=== PATIENT | male | born 1930 | race Caucasian/White ===

== ENCOUNTER 2017-03-21 16:40 | Inpatient (IN) | payer MEDICARE, OTHER ==
[~2017-03-21] VITALS: Ht 185 cm; Wt 96.2 kg
--- NOTE | ~2017-03-21 | PR ---
[place], [place] PROGRESS NOTE NAME: HANS CARIDAD ALDANA UNIT #: [id number] ROOM: 509 DOCTOR: JUSTIN LAI MD BIRTHDATE: [birth year] DOS: SUBJECTIVE: The patient is quite weak. He is awake, alert, oriented. OBJECTIVE: GENERAL APPEARANCE: The patient is alert and oriented x 3, in no visible distress. VITAL SIGNS: Blood pressure 122/48, heart rate of 90 beats per minute, breathing 18 times per minute, afebrile. HEENT AND NECK: Exam within normal limits. CARDIOVASCULAR SYSTEM: Heart rate is regular in rate and rhythm. S1 and S2 normally audible. LUNGS: Clear to auscultation. ABDOMEN: Soft, nontender. No obvious organomegaly. Bowel sounds are present. EXTREMITIES: Without significant cyanosis or edema. IMPRESSION: 1. The patient with cellulitis involving the right lower extremity without significant improvement with appropriate antibiotics from Infectious Disease. Disease specialist is following the patient. The patient is being treated with cefazolin and clindamycin. 2. Poorly healing wound of the right great. 3. Adult failure to thrive. The patient is working with physical therapy. We are also taking bedsore precautions. 4. Urinary tract infection with contaminated cultures. 5. Chronic atrial fibrillation with pacemaker placement. The patient anticoagulated with apixaban. 6. Benign essential hypertension with controlled blood pressures. JUSTIN LAI MD CM:PNTRANS [id number] JUSTIN LAI MD 03/27/17 0528 interface
--- NOTE | ~2017-03-21 | PR ---
[place], [place] PROGRESS NOTE NAME: HANS CARIDAD ALDANA UNIT #: [id number] ROOM: 509 DOCTOR: KENNEDY MANZANO,GREGORY Ontiveros BIRTHDATE: [birth year] DOS: ADDENDUM TO THE INFECTIOUS DISEASE NOTE ON 03/25/2017 ON THE PATIENT. I agree with the above plans as described. Follow the patient clinically and adjust accordingly. GREGORY BENAVIDES MD CM:PNTRANS [id number] GREGORY BENAVIDES MD 03/27/17 1824 interface
--- NOTE | ~2017-03-21 | PR ---
[place], [place] PROGRESS NOTE NAME: HANS CARIDAD ALDANA UNIT #: [id number] ROOM: 509 DOCTOR: JUSTIN LAI MD BIRTHDATE: [birth year] DOS: 03/28/2017 SUBJECTIVE: The patient is awake, alert, oriented and improving. OBJECTIVE: VITAL SIGNS: Blood pressure 113/49, heart rate of 86 beats per minute, breathing 18 times per minute, afebrile, pulse ox 95%. GENERAL APPEARANCE: The patient is alert and oriented x 3, in no visible distress. Generalized weakness. HEENT AND NECK: Exam within normal limits. CARDIOVASCULAR SYSTEM: Heart rate is regular in rate and rhythm. S1 and S2 normally audible. LUNGS: Clear to auscultation. ABDOMEN: Soft, nontender. No obvious organomegaly. Bowel sounds are present. EXTREMITIES: ____. Chronic skin changes in the lower extremities and cellulitis in the right lower extremity with slight improvement with treatment. It is also swollen and red, but improving and dried nonhealing chronic wound on the right toe. IMPRESSION: 1. The patient with advanced failure to thrive, going to retirement facility and wound care and antibiotics too at retirement facility. The patient was living by himself until he was admitted for being found on the floor at home. 2. Cellulitis of the right lower extremity with swelling and pain, improving slowly with treatment with antibiotics. 3. Adult failure to thrive. 4. Chronic atrial fibrillation, with pacemaker placement. 5. Benign essential hypertension. 6. Benign prostatic hypertrophy and urinary retention, controlled with Flomax. 7. Chronic atrial fibrillation with controlled heart rates. JUSTIN LAI MD CM:PNTRANS [id number] JUSTIN LAI MD 03/28/17 1426 interface
--- NOTE | ~2017-03-21 | PR ---
[place], [place] PROGRESS NOTE NAME: HANS CARIDAD ALDANA UNIT #: [id number] ROOM: 509 DOCTOR: JUSTIN LAI MD BIRTHDATE: [birth year] DOS: 03/23/2017 SUBJECTIVE: The patient complaining of lower extremity pains. OBJECTIVE: VITAL SIGNS: Blood pressure 105/76, heart rate 85 beats per minute, breathing 20 times per minute, temperature 99.4 degrees Fahrenheit. GENERAL APPEARANCE: The patient is alert and oriented x 3, in no visible distress. VITAL SIGNS: Blood pressure 105/76, heart rate 85 beats per minute, breathing 20 times per minute, temperature 99.4 degrees Fahrenheit. HEENT AND NECK: Exam within normal limits. CARDIOVASCULAR SYSTEM: Heart rate is regular in rate and rhythm. S1 and S2 normally audible. LUNGS: Clear to auscultation. ABDOMEN: Soft, nontender. No obvious organomegaly. Bowel sounds are present. EXTREMITIES: Generalized weakness, some right lower extremity weakness and redness and swelling. IMPRESSION: 1. The patient has right toe skin lesion and redness spreading from his calf up into his thigh, which is cellulitis and he already has chronic skin changes in the legs bilaterally. The patient showed no signs of deep vein thrombosis on the Dopplers done during this admission. 2. No signs of rhabdomyolysis with BUN and creatinine of 27 and 1.8. The patient is being diuresed. The patient being hydrated gently. 3. Poor appetite and adult failure to thrive. The patient on appetite stimulant and being encouraged to eat. 4. Benign essential hypertension with controlled blood pressures. 5. Urinary retention, being treated and controlled with Flomax. 6. Chronic atrial fibrillation with pacemaker placement. The patient anticoagulated with apixaban. 7. The patient working with physical therapy. JUSTIN LAI MD CM:PNTRANS [id number] JUSTIN LAI MD 03/24/17 0028 interface
--- NOTE | ~2017-03-21 | PR ---
[place], [place] PROGRESS NOTE NAME: CARIDAD MAXWELL SR UNIT #: [id number] ROOM: 509 DOCTOR: WILFREDO LYNNEJANUARY BIRTHDATE: [birth year] DOS: 03/25/2017 SUBJECTIVE: The patient is being followed for right leg cellulitis. He states he has some improvement of the right leg pain. He is on Ancef and clindamycin. He is not having any issues with the antibiotics. Denies fevers, chills, nausea, vomiting or diarrhea. No rash or itch. No cough or shortness of breath. LABORATORY DATA: Showed WBC is 9.4, platelets 184. Blood cultures remain sterile. OBJECTIVE: VITAL SIGNS: Temperature 97.4, pulse 81, respirations 18, BP 118/55. GENERAL: An 86-year-old male, in no acute distress. HEAD, EYES, EARS, NOSE AND THROAT: Normocephalic. No thrush. LUNGS: Clear to auscultation bilaterally. Respirations even and unlabored. HEART: Regular rhythm. No murmur appreciated. ABDOMEN: Soft, nontender. EXTREMITIES: Left lower extremity, +1 to 2 edema. Right lower extremity, +3 to 4 edema with significant erythema of the lower leg with involvement up to thigh, especially laterally that is improving. The erythema is somewhat less than from yesterday and tenderness seems to be somewhat less. ASSESSMENT: Right leg cellulitis. PLAN: Continue Ancef and clindamycin at least through the weekend. Case discussed with Dr. Gregory Benavides. BRIAN VILLALOBOS CNP [place], [place] PROGRESS NOTE NAME: CARIDAD MAXWELL SR UNIT #: [id number] ROOM: 509 DOCTOR: WILFREDO LYNNEJANUARY BIRTHDATE: [birth year] GREGORY BENAVIDES MD CM:PNTRANS [id number] JANUARY WILFREDO LYNNE 03/26/17 1631 interface
--- NOTE | ~2017-03-21 | CON ---
[place], [place] REPORT OF CONSULTATION NAME: CARIDAD MAXWELL SR UNIT #: [id number] ROOM: 509 DOCTOR: WILFREDO LYNNE,JANUARY BIRTHDATE: [birth year] DOS: 03/24/2017 HISTORY OF PRESENT ILLNESS: The patient is an 86-year-old male who was admitted from home late on the 6th after he fell. He was down they think for a couple of hours prior to coming in. He did have elevated CK. At the time of admission, his creatinine was also 1.3 and that has improved to 1.06. He has swelling, redness and pain of the right lower extremity. He was started on Zosyn early yesterday morning. ID was consulted for right leg cellulitis. His WBCs were 22.2 on admission and are down to 8.8 today. He has received IV fluids. His blood cultures are negative. Urine culture was contaminated. The patient states he has had swelling and pain of the right leg for approximately a week. He also states though that he was on antibiotics, which his daughter states that he was and he is somewhat of a poor historian. He has pain with right leg and is unable to stand on it. I have discussed the case extensively with Dr. Ponce and reviewed the chart. He had an ultrasound that was negative for DVT, as well as multiple scans and x-rays, which I reviewed, which were negative for DVT. PAST MEDICAL HISTORY: As above as well as cholecystitis, BPH, COPD, AFib, CVA, hyperlipidemia, anemia. ALLERGIES: INCLUDE BACTRIM. FAMILY MEDICAL HISTORY: Not pertinent given chief complaint or advanced age. Father with COPD. Mother with DE. SOCIAL HISTORY: He lives alone, nonsmoker, nondrinker. No illicit drug use. CURRENT MEDICATIONS: Include Aquaphor, MiraLax, Zosyn, Megace, Tylenol, Kenalog, nystatin, Proscar, Tenormin, aspirin, Flomax, Lipitor, Eliquis, DuoNeb. REVIEW OF SYSTEMS: As above in history of present illness. He has had a few low grade temps up to 99.9. No nausea or vomiting. No diarrhea. No rash or itch. No cough or shortness of breath. No headache or dizziness. He does have some generalized weakness, significant right leg swelling, pain and redness. LABORATORY DATA: WBC is 8.8, platelets 157. BUN 25, creatinine 1.06, sodium 143. PHYSICAL EXAMINATION: VITAL SIGNS: Temperature 98.2, pulse 67, respirations 20, BP 101/55: GENERAL: An 86-year-old male, in no acute distress. HEAD, EYES, EARS, NOSE AND THROAT: Normocephalic. No thrush. LUNGS: Clear to auscultation bilaterally. Respirations even and unlabored. HEART: Regular rhythm with murmur noted. ABDOMEN: Soft, nontender, positive bowel sounds. [place], [place] REPORT OF CONSULTATION NAME: CARIDAD MAXWELL SR UNIT #: [id number] ROOM: 509 DOCTOR: WILFREDO LYNNE,JANUARY BIRTHDATE: [birth year] EXTREMITIES: Mild left lower extremity, right lower extremity +3 to 4 edema with erythema that extends up to his hips, appears to be fading slightly. He does have a small superficial area where it appears that the skin has cracked at the base of the right great toe as well as a little erythema of the right second toe. There are no open wounds. Skin over the leg is dry and flaking, tender all the way up to the thigh. Skin is otherwise warm, dry, free of rashes. He does have hyperpigmentation of lower extremities, consistent with chronic edema. ASSESSMENT: Right leg cellulitis, which has partially responded to Zosyn. PLAN: At this point, we can narrow antibiotics to Ancef and clindamycin. I did discuss the case again with Dr. Ponce extensively as well as patient's daughter. After a couple of days of IV antibiotics, we should be able to switch over to oral Keflex as long as he responds well. Case discussed with Dr. Gregory Benavides. JANUARY GUERA VILLALOBOS GREGORY BENAVIDES MD CM:CONSTR:REPORT OF CONSULTATION 1827 03/24/17 0239 interface
--- NOTE | ~2017-03-21 | PR ---
[place], [place] PROGRESS NOTE NAME: HANS CARIDAD ALDANA UNIT #: [id number] ROOM: 509 DOCTOR: JUSTIN LAI MD BIRTHDATE: [birth year] DOS: 03/24/2017 SUBJECTIVE: The patient is still complaining of right lower extremity pain and swelling, although he says the pain is improving. OBJECTIVE: VITAL SIGNS: Blood pressure 113/69, heart rate 72 beats per minute, breathing 20 times per minute, temperature is going up to 99.9 degrees Fahrenheit. GENERAL APPEARANCE: The patient is alert and oriented x 3, in no visible distress. HEENT AND NECK: Exam within normal limits. CARDIOVASCULAR SYSTEM: Heart rate is regular in rate and rhythm. S1 and S2 normally audible. LUNGS: Clear to auscultation. ABDOMEN: Soft, nontender. No obvious organomegaly. Bowel sounds are present. EXTREMITIES: Generalized weakness, swelling and redness of the right lower extremity with slight warmth and he has a chronic right toe ulcer. IMPRESSION: 1. Chronic right toe ulcer probably where he got infected from and there was increasing cellulitis going into his right lower extremity with significant swelling and pain which has just started improving after treatment was started with Zosyn yesterday. from Infectious Disease specialist group is evaluating the patient and recommending treatment with Ancef and clindamycin. Case was also discussed with his daughter, Debora. 2. Severe leukocytosis with white cell count of 22,000 that has resolved completely with treatment with antibiotics apparently secondary to cellulitis. 3. Chronic atrial fibrillation and pacemaker placement. The patient anticoagulated with apixaban. 3. Advanced disability. The patient working with physical therapy. 4. Benign essential hypertension with controlled blood pressures. 5. Poor appetite, adult failure to thrive. The patient hydrated with IV fluids. He is being encouraged to eat and he is on appetite stimulants. JUSTIN LAI MD CM:PNTRANS [id number] JUSTIN LAI MD 03/25/17 0156 interface
--- NOTE | ~2017-03-21 | PR ---
[place], [place] PROGRESS NOTE NAME: [facility]ANS [facility]AD ALDANA [id number] UNIT #: [id number] ROOM: 509 DOCTOR: CHRISTINE MartinezPRITI BIRTHDATE: [birth year] DOS: 03/28/2017 WOUND CARE PROGRESS NOTE SUBJECTIVE: The patient has no specific complaints regarding his right great toe where his wound had been, however, he said he noticed some pain on his fifth toe during the night. He is not sure what caused it, it seems to not bothering him this morning, but he is concerned about it. His temperature is 98.5, pulse of 86, respirations 18, blood pressure is 113/49. The wound that was noted on the right great toe plantar aspect was a fissure type wound, appears to be healing nicely. There is some thick callus noted around the periwound area. I did offer if the patient wanted me to pare down the callus or debride the area for him today while he is here, the patient declined this. He said it feels fine and he is not worried about. The area that he is complaining about is located in between the webspace between the fourth and fifth toe and there is really nothing open, there is nothing red. I do not appreciate any type of bony abnormality with this toe. There is no sign of infection. So, it is not quite clear what caused his discomfort. It may be that it is rubbing between the fourth toe and fifth toe and is causing discomfort, so for now, I would suggest just to keep this area patted with perhaps a Band-Aid just to keep it from rubbing and see how he does with that. His leg, however, remains markedly swollen. He has got 2-3+ pitting edema bilaterally. The redness appears much improved; however, from when he first came. He has not had any recent blood work. His blood cultures were negative. ASSESSMENT AND PLAN: Healing ulcer of the right great toe, which appears to be improving quite nicely. I will continue with the present dressing and probably will need anything to be applied to it the next week or so. Of note, he is also having some discomfort with the fourth and fifth toe, I think it is from the rubbing against the fourth toe and I would like to use Band-Aid for now to see if we can help to keep this area free of friction for now. He may need something else to be added such as a Pro-Toe protector foam pad or something that may be available from Podiatry if it continues, so I will keep an eye on this as well. His cellulitis appears much improved to me. He does continue to have some edema especially in the ankle areas, family is concerned about this and is wanting to hear from Dr. Oliva, what may be the cause of that. In the meantime, I have written orders for wound care to be done while he is at [facility] and if ____ wounds do not continue to get heal or reopen, if he needs to come and see us, he can or follow up with Podiatry. [place], [place] PROGRESS NOTE NAME: HANS CARIDAD ALDANA UNIT #: [id number] ROOM: [facility] DOCTOR: PRITI KING M.D. BIRTHDATE: [birth year] PRITI KING MD CM:ABDIEL [phone] PRITI KING M.D. 03/28/171954 interface
--- NOTE | ~2017-03-21 | PR ---
[place], [place] PROGRESS NOTE NAME: CARIDAD MAXWELL SR UNIT #: [id number] ROOM: 509 DOCTOR: KENNEDY MANZANO,GREGORY Ontiveros BIRTHDATE: [birth year] DOS: 03/27/2017 ADDENDUM I agree with above plans as described. We will follow the patient up clinically and adjust accordingly. GREGORY BENAVIDES MD CM:PNTRANS 1742 [id number] GREGORY BENAVIDES MD 03/27/17 1903 interface
--- NOTE | ~2017-03-21 | CON ---
[place], [place] REPORT OF CONSULTATION NAME[facility]LL [id number] UNIT #: [id number] ROOM: 509 DOCTOR: CHRISTINE MartinezPRITI BIRTHDATE: [birth year] DOS: 03/23/2017 WOUND CARE CONSULTATION HISTORY OF PRESENT ILLNESS: This is an 86-year-old male who presented to the Emergency Room Department after a fall. Apparently, the patient had fallen at home sometime around late in the evening on the 03/21 and had trouble getting up off the floor. He had complained of pain in his hip and right ankle post-fall, but had not been brought in until a few hours after the incident where he was noted to have some rhabdomyolysis as well as swelling and redness of the right lower extremity. He was admitted to the Emergency Room Department for mental status changes, rhabdomyolysis and dehydration. His past medical history comes from the charts, the patient is somewhat of a poor historian. PAST MEDICAL HISTORY: Significant for acute cholecystitis, acute exacerbation of COPD with asthma, acute kidney injury, asthma, BPH, chronic atrial fib, COPD, elevated INR, history of CVA x2, hyperlipidemia, normocytic anemia and urinary tract infection. ALLERGIES: Multiple and include SULFA AND TRIMETHOPRIM. SOCIAL HISTORY: He lives alone. He does not drink alcohol, does not use illicit drugs and has never smoked. FAMILY HISTORY: Significant for COPD in the father, mother with history of myocardial infarction. CURRENT MEDICATIONS: That have been ordered are; MiraLax powder 17 g q.a.m., Zosyn 2.25 g IV q.8 hours, Megace 400 p.o. b.i.d., Tylenol p.r.n. He is on triamcinolone cream q.12 hours topically, nystatin q.12 hours, Proscar 5 mg p.o. daily, atenolol 12.5 p.o. daily, aspirin 81 daily, Flomax 0.4 b.i.d., Lipitor 10 mg at bedtime, Eliquis 5 mg p.o. b.i.d., albuterol nebs 3 mL q.6 hours. REVIEW OF SYSTEMS: He is somewhat of a poor historian. He knows he is here in the hospital because he fell. He reports pain with his ankle. When I asked specifically how long he has had his toe ulcer, which is what Wound Care has been consulted for, he is not able to tell me. Other than other review of systems are, he does complain of a poor appetite, saying he does not feel like eating and occasional urinary incontinence is noted. Other review of systems are negative that include there are no complaints of shortness of breath or chest pain, GI complaints, nausea or vomiting, diarrhea, weight loss or pain in the foot. His daughter, Debora our director from case management in the hospital notes that she did take him to Podiatry for evaluation of the toe ulcer, but she is not quite sure how long he has had the wound and the patient cannot tell me. He is somewhat lethargic, but easily arousable and alert once he wakes up. PHYSICAL EXAMINATION: VITAL SIGNS: Stable. Temperature is 98.5, pulse of 87, respirations 20, blood pressure is 91/49. [place], [place] REPORT OF CONSULTATION NAME: HANS CARIDAD ALDANA UNIT #: [id number] ROOM: [facility] DOCTOR: PRITI KING M.D. BIRTHDATE: [birth year] GENERAL: He is pale on examination. HEENT: His oropharynx is clear. NECK: There is no JVD. LUNGS: Clear to auscultation, but he has a poor inspiratory effort. CARDIOVASCULAR: S1, S2 irregularly irregular. ABDOMEN: Soft and nontender. EXTREMITIES: He has some trace edema of the right lower extremity. His posterior tibial pulse is palpable. His dorsalis pedis is difficult to feel. His toes are warm. He has evidence of his erythema from about the midfoot up to slightly above the knee. It is mildly to moderately erythematous and warm and mildly tender to palpation. There is a superficial abrasion of the knee that looks to be in the healing stage. His capillary refill is normal on his right toes and he also has evidence of venous stasis disease. He has a fissure-type wound of the plantar aspect of the right great toe that has some old dried blood on it and it looked to scabbing over on its own. There was some slight callus formation around it. It is not acutely warm or erythematous around the wound. The toe does not appear swollen, but it is slightly tender to touch. I do not appreciate any type of foreign body present in the wound base at this point, but I would characterize it as a fissure-type wound at approximately 0.3 cm in length x 1.2 cm in width and 0.1 cm in depth. NEUROLOGIC: He seems alert, oriented, but generally weak. LABORATORY DATA: His white count when he was admitted was 22.2, today it is down to 12.4, hemoglobin is 12 and platelets are 146. He has a left shift of 86.9% neutrophils. His BUN is 27, creatinine is 1.17. Lactic acid is 1.7, glucose is 101. Sodium is 142, potassium is 4. His initial lactic acid was 3.2. His albumin is 3.2. He did have blood cultures which are negative. He had urine culture, which has multiple species present, probable contamination. IMAGING STUDY: He had a Doppler venous which was negative. He had a head CT scan done, which was small vessel white matter ischemic changes and chronic infarct of the right occipital lobe, but no acute changes. Hip x-ray showed no evidence of any acute bony injury to hip. Ankle x-ray shows no acute bone or joint injury. There is a chip fracture, age indeterminate involving the posterior malleolus. 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 Chest x-ray shows no pneumothorax, no acute osseous process, no acute infiltrates. 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 It does appear to be healing on its own at this point. Orders have already been recommended for TheraHoney and a dressing over that, which is I agree with for now. This is likely the source of entry for the organism for the cellulitis. He does have a cellulitis of the right lower extremity, but the wound itself does not look acutely infected. I have taken liberty of ordering an x-ray for this toe as well as arterial Dopplers. He likely does have some vascular disease as well, so we will work this up while he is inpatient. He does have a poor appetite and we will need to continue to monitor this while he is here. He also has other medical problems that included rhabdomyolysis and dehydration, which are being monitored by his medical team. He is generally weak and will [place], [place] REPORT OF CONSULTATION NAME: HANS CARIDAD ALDANA UNIT #: [id number] ROOM: 509 DOCTOR: PRITI KING M.D. BIRTHDATE: [birth year] likely need some care home care. Thank you for this patient. PRITI KING MD CM:CONSTR:REPORT OF CONSULTATION 1459 03/28/17 1215 interface
--- NOTE | ~2017-03-21 | PR ---
[place], [place] PROGRESS NOTE NAME: CARIDAD MAXWELL SR UNIT #: [id number] ROOM: 509 DOCTOR: PRITI KING M.D. BIRTHDATE: [birth year] DOS: 03/24/2017 SUBJECTIVE: This is a followup note for right great toe ulceration. The patient says overall he is feeling more alert. His nurse states that he was up walking with therapy today and he ate a little bit. The patient states he still has pain in his right leg and does not seem to have improved much according to the patient. OBJECTIVE: VITAL SIGNS: He has a low grade temp of 99.9, pulse of 86, respirations 20, blood pressure is 117/61. EXTREMITIES: The right leg remains erythematous as much as yesterday. I do not see much improvement from yesterday. It is still warm and mildly tender to touch from the foot to the right above the knee and then there is also erythema on the right upper thigh noted as well. The ulceration wound looks good, looks clean, looks to be in the healing stage without any sign of an acute inflammation. LABORATORY DATA: His white count today is down to 8.8, hemoglobin is 10 and platelets are 157. BUN is 25, creatinine is 1. His blood cultures are negative so far. He did have an x-ray done of his right great toe, which showed osteoporosis and no acute osseous abnormality. He also had an arterial ultrasound done, which shows mild inflow stenosis, multilevel disease, diffuse superficial femoral, popliteal stenosis, significant ____ stenosis, both stenotic and occlusive. ASSESSMENT AND PLAN: Right great toe ulcer, which seems to be stable and improving. He still has what appears to be cellulitis that has not improved. I would obtain an Infectious Disease consult to see if any other antibiotics should be utilized. He also does have some peripheral vascular disease that was noted on arterial ultrasound, which may need vascular followup. I will discuss this with the patient's daughter when she is available. [place], [place] PROGRESS NOTE NAME: CARIDAD MAXWELL SR UNIT #: [id number] ROOM: 509 DOCTOR: PRITI KING M.D. BIRTHDATE: [birth year] PRITI KING MD CM:ABDIEL [id number] PRITI KING M.D. 03/25/17 0107 interface
--- NOTE | ~2017-03-21 | PR ---
[place], [place] PROGRESS NOTE NAME: [facility]AD [facility]NA [id number] UNIT #: [id number] ROOM: 509 DOCTOR: WILFREDO LYNNE,JANUARY BIRTHDATE: [birth year] DOS: 03/27/2017 SUBJECTIVE: The patient is an 86-year-old male who is being followed for a right leg cellulitis. He is currently on Ancef and clindamycin. MRSA screen is pending that was done due to concern with slow improvement. His blood cultures are negative. Denies any nausea, vomiting, diarrhea. No rash or itch. No shortness of breath. He has been afebrile. CURRENT MEDICATIONS: Include Aquaphor, clindamycin, cefazolin, Megace, Tylenol, Kenalog, nystatin, Proscar, Tenormin, aspirin, Flomax, Lipitor, Eliquis and DuoNebs. LABORATORY DATA: He has had no labs today. Yesterday, WBCs were 8.6, platelets 230. PHYSICAL EXAMINATION: GENERAL: An 86-year-old male, alert and oriented, in no acute distress. VITAL SIGNS: Temperature 97.7, pulse 78, respirations 18, BP 110/50. HEAD, EYES, EARS, NOSE AND THROAT: Normocephalic, no thrush. LUNGS: Clear to auscultation bilaterally. Respirations even and unlabored. HEART: Regular rhythm. No murmur appreciated. ABDOMEN: Soft, nontender. EXTREMITIES: Right lower extremity +3 edema. Continues with erythema and discoloration of the lower leg. His thigh is much improved. Most of the leg is much improved. Some of the erythema, he also has chronic discoloration matching on the left leg demonstrating his chronic edema. ASSESSMENT: Right leg cellulitis, which is improving on Ancef and clindamycin. PLAN: I have discussed the case in detail with Dr. Ponce. I have also advised the patient that he needs to keep his leg elevated when he is sitting to help with the edema. Tomorrow, he is supposed to be transferred to a rehab. His antibiotics at that point could be changed over to cephalexin 500 mg p.o. q. 6 hours. I would expect some swelling and discomfort to continue for even several weeks and again I advised the patient to continue to elevate the leg to help with that. Case was discussed with Dr. Gregory Benavides. BRIAN VILLALOBOS CNP [place], [place] PROGRESS NOTE NAME: HANS CARIDAD ALDANA UNIT #: [id number] ROOM: 509 DOCTOR: WILFREDO LYNNE BIRTHDATE: [birth year] GREGORY BENAVIDES MD CM:PNWANDA [id number] JANUARY WILFREDO LYNNE 03/28/17 0418 interface
--- NOTE | ~2017-03-21 | WRIGHTHP ---
[place], [place] PATIENT HISTORY AND PHYSICAL EXAM [id number] UNIT #: [id number] ROOM: 509 DOCTOR: JUSTIN LAI MD BIRTHDATE: [birth year] DOS: 03/21/2017 HISTORY OF PRESENT ILLNESS: The patient is an 86-year-old gentleman with a past medical history of chronic atrial fibrillation, mixed hyperlipidemia, BPH, normocytic anemia, CVA, COPD. The patient presented to the Emergency Department when his family was unable to contact him from 11:00 to 1:00 that is for like 3 hours. The patient was found on the floor. The patient says he fell off trying to get off his commode and was unable to get up and get help. The patient does not remember hitting his head or becoming unconscious. The patient says he has had poor appetite and has not been eating well recently. The patient was evaluated in the Emergency Department and recommended for admission and further management for suspected rhabdomyolysis and dehydration. After admission, the patient is alert, oriented, very weak looking, in no visible distress and asymptomatic. REVIEW OF SYSTEMS: LUNGS: No shortness of breath or wheezing. GASTROINTESTINAL: No nausea, vomiting, diarrhea or constipation. Just poor appetite. CARDIOVASCULAR: No chest pains or palpitations. FAMILY HISTORY: Noncontributory. HOME MEDICATIONS: The patient takes finasteride, atenolol, aspirin, Flomax, Lipitor, apixaban, breathing treatments. ALLERGIES: KNOWN ALLERGIES TO SULFA. PHYSICAL EXAMINATION: GENERAL: Alert, oriented, very weak looking. HEENT AND NECK: Extraocular movements are intact. Sclerae are anicteric. Oral mucosa is moist and clean. No obvious facial weakness. Neck is supple without any lymphadenopathy. No thyromegaly. No JVD. No carotid arterial bruits. LUNGS: Clear to auscultation. No wheezing. No rhonchi. CARDIOVASCULAR SYSTEM: Heart rate is regular in rate and rhythm. S1 and S2 normally audible. No significant murmur or any other abnormal cardiac sounds. ABDOMEN: Soft, nontender. No obvious organomegaly. Bowel sounds are present. No obvious herniation. EXTREMITIES: Without significant cyanosis or edema. Warm to touch. CENTRAL NERVOUS SYSTEM: Alert and oriented x 3. Cranial nerves II-XII are intact. Speech is normal. The patient is able to move all extremities. Normal muscle strength. Deep tendon reflexes are equal on both sides. Plantars were downgoing. MUSCULOSKELETAL: The patient has a toe ulcer on the right great toe. LABORATORY DATA: Hemoglobin 12.2, white cell count of 12,400. BUN and creatinine 27 and 1.3. Venous Dopplers were negative for any DVT in the right lower extremity. IMPRESSION AND PLAN: 1. The patient has adult failure to thrive, generalized weakness and fall at [place], [place] PATIENT HISTORY AND PHYSICAL EXAM NAME: CARIDAD MAXWELL SR UNIT #: [id number] ROOM: [facility] DOCTOR: JUSTIN LAI MD BIRTHDATE: [birth year] home and he was on the floor for 3 hours, possibly. The patient is being checked for rhabdomyolysis. He does not appear to have any acute or chronic kidney disease at this time. BUN and creatinine is stable. I will hydrate him with normal saline and work him with physical therapy. 2. Poor appetite leading to dehydration and fall at home. I will start him on Megace to encourage him to eat. 3. The patient requires senior care facility placement for rehab and physical therapy before going home. 4. Benign essential hypertension. I will continue treatment and monitor blood pressures. 5. Urinary retention treated and apparently well controlled with Flomax. 6. Chronic atrial fibrillation and pacemaker placement. The patient anticoagulated with apixaban. 7. Follow closely and treat accordingly. Guest Services Lead have been consulted for placement. JUSTIN LAI MD CM:HISPHYS:PATIENT HISTORY AND PHYSICAL EXAMINATION [id number] JUSTIN LAI MD 03/22/17 182 interface
--- NOTE | ~2017-03-21 | DS ---
[place], [place] DISCHARGE SUMMARY [facility]LL [id number] UNIT #: [id number] ROOM: 509 DOCTOR: JUSTIN LAI MD BIRTHDATE: [birth year] DOS: 03/28/2017 DISCHARGE DIAGNOSES: 1. Cellulitis involving the right lower extremity and poorly healing wound of the right toe. 2. Adult failure to thrive. 3. Chronic atrial fibrillation and pacemaker placement. 4. Benign essential hypertension. 5. Benign prostatic hypertrophy and urinary retention controlled with Flomax. 6. Chronic atrial fibrillation. HOSPITAL COURSE: The patient presented to the Emergency Department after he was found on the floor for uncertain amount of time. The patient could not be contacted for about 3 hours and then he was found sitting on the floor. The patient says that he fell when he was getting off the commode. There were no visible injuries. He was suspected to have rhabdomyolysis. His kidney functions were followed. Kidney function appears to be normal. The patient was hydrated with normal saline. The patient was observed to have redness, swelling and warmth of the right lower extremity and a chronic nonhealing wound on the right toe. The patient also was complaining of significant pain on the right lower extremity. The patient was diagnosed as having cellulitis of the right lower extremity, apparently related to infection, getting into his right lower extremity from the nonhealing right toe ulcer. The patient was started on antibiotics and followed by Infectious Disease specialist and has been recommended discharge to the snf because the right lower extremity infection is improving. There is no leukocytosis and patient will be treated with Keflex for 10 days after discharge to the snf tomorrow. So far, the patient is getting Ancef and clindamycin intravenously. Chronic constipation, treated with laxatives. Chronic atrial fibrillation with controlled heart rates. The patient has a pacemaker placement. Apixaban. Benign essential hypertension with controlled blood pressures with treatment. Old age, generalized weakness and failure to thrive. The patient worked with physical therapy. Urine retention controlled and treated with finasteride and Flomax. DISCHARGE MANAGEMENT: The patient will be on Keflex 1 gram every 6 hours orally for 10 days, MiraLax 17 g daily, Megace 400 mg b.i.d. for a month, finasteride 5 mg a day, atenolol 12.5 mg a day, aspirin 81 mg a day, Flomax 0.4 mg a day, atorvastatin 10 mg a day, apixaban 5 mg b.i.d., DuoNeb every 6 hours. [place], [place] DISCHARGE SUMMARY NAME: CARIDAD MAXWELL SR UNIT #: [id number] ROOM: [facility] DOCTOR: JUSTIN LAI MD BIRTHDATE: [birth year] JUSTIN LAI MD CM:DISCHEDIS [id number] JUSTIN LAI MD 03/27/172220 interface
--- NOTE | ~2017-03-21 | PR ---
[place], [place] PROGRESS NOTE NAME: HANS CARIDAD ALDANA UNIT #: [id number] ROOM: 509 DOCTOR: SELENA VILLAFUERTE MD BIRTHDATE: [birth year] DOS: SUBJECTIVE: The patient has a hard time getting up out of bed into a chair. His right leg is extremely swollen. He has redness throughout his leg. OBJECTIVE: Graphic trends shows that he is afebrile. VITAL SIGNS: Blood pressure is 134/60, pulse is 90, respirations 14, temperature 97.8. LUNGS: Clear. HEART: Regular. ABDOMEN: Obese, soft, nontender. EXTREMITIES: Extreme swelling of the right leg, there is a wound on his right knee area, left knee area as well as a right big toe. ASSESSMENT AND PLAN: 1. Cellulitis of the right leg. The patient is on antibiotics. 2. Poorly healing wound of the toe, again on antibiotics. Wound care is following. 3. Adult failure to thrive. The patient to go to rehab when more stable clinically. White cell count has normalized. 4. Urinary tract infection. Urine culture shows a contaminated specimen which will be repeated. SELENA VILLAFUERTE MD CM:PNTRANS [id number] SELENA VILLAFUERTE MD 03/25/172102 interface
[~2017-03-21 16:40] MED LIST: AMBIEN5 MG PO; ASPIRIN81 M1 PO; ATENOLOL25 MG PO; CELEBREX200 MG PO; COUMADIN4 M1; COUMADIN4 M1 PO; COUMADIN4 M2 PO; COUMADIN6 MG PO; DIGOXIN0.125 MG PO; DUONEB 3 MG/3 ML3 M1 NEB; FLOMAX0.4 MG PO; LANOXIN; LANOXIN0.25 MG PO; LEVAQUIN750 M1 PO; LIPITOR20 MG PO; MIRALAX17 GM/PACK PO; MOM30 ML PO; MULTIPLE VITAMI1 CAP PO; PROSCAR5 MG PO; VITAMIN D31000 I1 PO
[2017-03-21 16:58] VITALS: BP 110/62
[2017-03-21] MEDS ORDERED: ELIQUIS5 M1 PO (16:59)
[2017-03-21 18:38] LABS: HEMATOCRIT 40.7 % (42.0-52.0); HEMOGLOBIN 13.5 g/dl (14.0-18.0); MEAN CELL VOLUME 87.9 fl (80.0-94.0); MEAN CORPUSCULAR HGB 29.2 pg (27.0-31.0); MEAN CORPUSCULAR HGB CONC 33.2 g/dl (33.0-37.0); MEAN PLATELET VOLUME 10.1 fl (9.6-12.3); PLATELET COUNT AUTOMATED 173 10*3/uL (130-400); RED BLOOD COUNT 4.63 10*6/uL (4.50-5.90); RED CELL DISTRI WIDTH 15.2 % (0-14.5); WHITE BLOOD COUNT 22.2 10*3/uL (4.8-10.8)
[2017-03-21 18:48] LABS: INTERNATIONAL NORM RATIO 1.2 (2.0-3.5); PROTHROMBIN TIME 12.4 SECONDS (9.0-12.4)
[2017-03-21 18:53] LABS: ALBUMIN 3.2 gm/dl (3.1-4.5); BILIRUBIN, TOTAL 1.1 mg/dl (0.2-1.0); C-REACTIVE PROTEIN 11.5 MG/DL (0-0.3); MAGNESIUM 2.1 mg/dL (1.5-2.1); POTASSIUM 4.1 mmol/L (3.5-5.1); TOTAL PROTEIN 7.2 gm/dL (6.4-8.2)
[2017-03-21 19:03] LABS: LYMPHOCYTE # 0.9 10*3/uL (1.3-4.4); MONOCYTE # 0.9 10*3/uL (0.1-1.0); NEUTROPHIL # 20.4 10*3/uL (2.3-7.9); NEUTROPHILS 92 % (47-73); PLATELET SUFFICIENCY NORMAL (NORMAL); TOTAL CELLS COUNTED 100 #CELLS
[2017-03-21 19:03] LABS: BILIRUBIN NEGATIVE (NEGATIVE); BLOOD 3+ (NEGATIVE); CLARITY SL CLOUDY (CLEAR); COLOR YELLOW (YELLOW); GLUCOSE NEGATIVE (NEGATIVE); KETONE NEGATIVE (NEGATIVE); LEUKO ESTERASE NEGATIVE (NEGATIVE); NITRITE NEGATIVE (NEGATIVE); PROTEIN 1+ (NEGATIVE); SPECIFIC GRAVITY >= 1.030 (1.005-1.030)
[2017-03-21 19:04] LABS: TROPONIN I 0.113 ng/ml (<0.045)
[2017-03-21 19:15] LABS: BACTERIA 4+; MUCOUS 1+; WBC 0-2 wbc/hpf (0-5)
[2017-03-21 19:16] LABS: URINE REFLEX COMMENT YES (NO)
[2017-03-21 19:30] VITALS: BP 106/58
[2017-03-21 20:34] LABS: LA>2 REFLEX 2 HR DRAW NOW
[2017-03-21 21:11] VITALS: BP 113/48; BP 113/84
[2017-03-21 21:30] VITALS: BP 107/55
[2017-03-21 21:48] VITALS: BP 107/55
[2017-03-22] VITALS: BP 122/49
[2017-03-22 06:57] LABS: BASO % 0.1 % (0.0-1.0); HEMOGLOBIN 12.2 g/dl (14.0-18.0); IG # 0.1 10*3/uL (0.0-0.1); LYMPH # 0.9 10*3/uL (1.3-4.4); LYMPH % 6.9 % (27.0-41.0); MEAN CELL VOLUME 88.7 fl (80.0-94.0); MEAN CORPUSCULAR HGB 29.3 pg (27.0-31.0); MEAN PLATELET VOLUME 10.3 fl (9.6-12.3); MONO # 0.7 10*3/uL (0.1-1.0); MONO % 5.7 % (3.0-9.0); NEUT # 10.8 10*3/uL (2.3-7.9); NEUT % 86.9 % (47.0-73.0); PLATELET COUNT AUTOMATED 146 10*3/uL (130-400); RED BLOOD COUNT 4.17 10*6/uL (4.50-5.90); RED CELL DISTRI WIDTH 15.3 % (0-14.5); WHITE BLOOD COUNT 12.4 10*3/uL (4.8-10.8)
[2017-03-22 07:11] LABS: BUN 27 mg/dl (7-24); CARBON DIOXIDE 28 mmol/L (21-32); CHLORIDE 107 mmol/L (98-107); EST GLOM FILT AFRICAN AMERICAN > 60 ml/min; GLUCOSE 96 mg/dL (65-99); POTASSIUM 4.1 mmol/L (3.5-5.1); SODIUM 142 mmol/L (136-145)
[2017-03-22 08:00] VITALS: BP 104/46
[2017-03-22 12:00] VITALS: BP 98/50
[2017-03-22 16:00] VITALS: BP 101/46
[2017-03-22 20:00] VITALS: BP 77/55
[2017-03-23] VITALS: BP 93/47
[2017-03-23 06:52] LABS: BUN 27 mg/dl (7-24); CARBON DIOXIDE 25 mmol/L (21-32); CHLORIDE 109 mmol/L (98-107); EST GLOM FILT AFRICAN AMERICAN > 60 ml/min; GLUCOSE 101 mg/dL (65-99); SODIUM 142 mmol/L (136-145)
[2017-03-23 08:00] VITALS: BP 105/76
[2017-03-23 12:00] VITALS: BP 91/49
[2017-03-23 16:00] VITALS: BP 118/50
[2017-03-23 20:00] VITALS: BP 94/39
[2017-03-24] VITALS: BP 108/56
[2017-03-24 06:18] LABS: BASO % 0.1 % (0.0-1.0); EOS # 0.3 10*3/uL (0.0-0.4); HEMATOCRIT 32.3 % (42.0-52.0); HEMOGLOBIN 10.5 g/dl (14.0-18.0); IG # 0.1 10*3/uL (0.0-0.1); LYMPH # 0.8 10*3/uL (1.3-4.4); LYMPH % 8.6 % (27.0-41.0); MEAN CELL VOLUME 88.3 fl (80.0-94.0); MEAN CORPUSCULAR HGB 28.7 pg (27.0-31.0); MEAN CORPUSCULAR HGB CONC 32.5 g/dl (33.0-37.0); MEAN PLATELET VOLUME 10.4 fl (9.6-12.3); MONO # 0.6 10*3/uL (0.1-1.0); MONO % 7.1 % (3.0-9.0); NEUT # 7.1 10*3/uL (2.3-7.9); NEUT % 80.6 % (47.0-73.0); PLATELET COUNT AUTOMATED 157 10*3/uL (130-400); RED BLOOD COUNT 3.66 10*6/uL (4.50-5.90); RED CELL DISTRI WIDTH 15.3 % (0-14.5); WHITE BLOOD COUNT 8.8 10*3/uL (4.8-10.8)
[2017-03-24 06:42] LABS: BUN 25 mg/dl (7-24); CARBON DIOXIDE 28 mmol/L (21-32); CHLORIDE 109 mmol/L (98-107); GLUCOSE 94 mg/dL (65-99); POTASSIUM 3.7 mmol/L (3.5-5.1); SODIUM 143 mmol/L (136-145)
[2017-03-24 06:44] LABS: EST GLOM FILT AFRICAN AMERICAN > 60 ml/min
[2017-03-24 08:00] VITALS: BP 117/61
[2017-03-24 12:00] VITALS: BP 101/55
[2017-03-24 16:00] VITALS: BP 113/69
[2017-03-24 20:00] VITALS: BP 93/47
[2017-03-25] VITALS: BP 122/54
[2017-03-25 06:49] LABS: BASO % 0.1 % (0.0-1.0); EOS # 0.3 10*3/uL (0.0-0.4); EOS % 3.6 % (1.0-4.0); HEMOGLOBIN 10.6 g/dl (14.0-18.0); IG # 0.1 10*3/uL (0.0-0.1); LYMPH # 0.8 10*3/uL (1.3-4.4); LYMPH % 8.5 % (27.0-41.0); MEAN CELL VOLUME 88.7 fl (80.0-94.0); MEAN CORPUSCULAR HGB 28.5 pg (27.0-31.0); MEAN CORPUSCULAR HGB CONC 32.1 g/dl (33.0-37.0); MEAN PLATELET VOLUME 10.1 fl (9.6-12.3); MONO # 0.7 10*3/uL (0.1-1.0); MONO % 7.9 % (3.0-9.0); NEUT # 7.4 10*3/uL (2.3-7.9); NEUT % 79.2 % (47.0-73.0); PLATELET COUNT AUTOMATED 184 10*3/uL (130-400); RED BLOOD COUNT 3.72 10*6/uL (4.50-5.90); RED CELL DISTRI WIDTH 15.2 % (0-14.5); WHITE BLOOD COUNT 9.4 10*3/uL (4.8-10.8)
[2017-03-25 08:01] VITALS: BP 134/60
[2017-03-25 12:00] VITALS: BP 100/40
[2017-03-25 16:00] VITALS: BP 118/55
[2017-03-25 20:00] VITALS: BP 110/52
[2017-03-26] VITALS: BP 122/53
[2017-03-26 06:32] LABS: BASO % 0.1 % (0.0-1.0); EOS # 0.3 10*3/uL (0.0-0.4); EOS % 3.2 % (1.0-4.0); HEMATOCRIT 30.5 % (42.0-52.0); HEMOGLOBIN 9.8 g/dl (14.0-18.0); IG # 0.1 10*3/uL (0.0-0.1); LYMPH # 0.8 10*3/uL (1.3-4.4); LYMPH % 9.5 % (27.0-41.0); MEAN CELL VOLUME 87.9 fl (80.0-94.0); MEAN CORPUSCULAR HGB 28.2 pg (27.0-31.0); MEAN CORPUSCULAR HGB CONC 32.1 g/dl (33.0-37.0); MEAN PLATELET VOLUME 10.3 fl (9.6-12.3); MONO # 0.7 10*3/uL (0.1-1.0); MONO % 7.6 % (3.0-9.0); NEUT # 6.7 10*3/uL (2.3-7.9); NEUT % 78.1 % (47.0-73.0); PLATELET COUNT AUTOMATED 230 10*3/uL (130-400); RED BLOOD COUNT 3.47 10*6/uL (4.50-5.90); RED CELL DISTRI WIDTH 15.2 % (0-14.5); WHITE BLOOD COUNT 8.6 10*3/uL (4.8-10.8)
[2017-03-26 08:00] VITALS: BP 121/47
[2017-03-26 12:00] VITALS: BP 122/48
[2017-03-26 16:00] VITALS: BP 99/52
[2017-03-26 20:00] VITALS: BP 110/52
[2017-03-27] VITALS: BP 114/55
[2017-03-27 08:00] VITALS: BP 113/46
[2017-03-27 12:00] VITALS: BP 120/48
[2017-03-27 16:00] VITALS: BP 110/50
[2017-03-27] MEDS ORDERED: MEGACE 40400 MG/10 PO (17:17)
[2017-03-27] MEDS ORDERED: TYLENOL EXTRA500 M2 PO (17:17)
[2017-03-27] MEDS ORDERED: MIRALAX POWDER17 G1 PO (17:17)
[2017-03-27] MEDS ORDERED: KEFLEX 500 MG E2 CAP PO (17:17)
[2017-03-27 20:00] VITALS: BP 105/50
[2017-03-28] VITALS: BP 110/52
[2017-03-28 08:00] VITALS: BP 113/49
[2017-03-28 12:00] VITALS: BP 114/48
== END 2017-03-28 16:28 | disposition other institution (70) | DRG 871 ==
LOC: ED 16:40 → EDHOLD 20:26 → 5E 20:26
PROVIDERS: Emergency Medicine; Internal Medicine
DX: A41.9 Sepsis, unspecified organism (principal); G93.41 Metabolic encephalopathy; I48.2 Chronic atrial fibrillation; J44.9 Chronic obstructive pulmonary disease, unspecified; L03.115 Cellulitis of right lower limb; L97.519 Non-pressure chronic ulcer of other part of right foot with unspecified severity; E86.0 Dehydration; I10 Essential (primary) hypertension; R62.7 Adult failure to thrive; T79.6XXA Traumatic ischemia of muscle, initial encounter; N40.1 Benign prostatic hyperplasia with lower urinary tract symptoms; R33.8 Other retention of urine; W18.39XA Other fall on same level, initial encounter; M13.871 Other specified arthritis, right ankle and foot; E78.2 Mixed hyperlipidemia; M81.8 Other osteoporosis without current pathological fracture; K59.09 Other constipation; Z88.2 Allergy status to sulfonamides; Z86.73 Personal history of transient ischemic attack (TIA), and cerebral infarction without residual deficits; Z79.82 Long term (current) use of aspirin; Z79.899 Other long term (current) drug therapy; Z95.0 Presence of cardiac pacemaker; Y93.89 Activity, other specified; Y92.098 Other place in other non-institutional residence as the place of occurrence of the external cause; Y99.8 Other external cause status; Z88.1 Allergy status to other antibiotic agents; Z88.8 Allergy status to other drugs, medicaments and biological substances; Z82.5 Family history of asthma and other chronic lower respiratory diseases

== ENCOUNTER → 2017-08-19 | Outpatient (CLI) | payer MEDICARE ==
[~2017-08-19] MED LIST changes: +ELIQUIS5 M1 PO; +KEFLEX 500 MG E2 CAP PO; +MEGACE 40400 MG/10 PO; +MIRALAX POWDER17 G1 PO; +TYLENOL EXTRA500 M2 PO
== END | disposition home or self-care (01) ==
LOC: CT 08-18 16:00
DX: R91.1 Solitary pulmonary nodule (principal); I10 Essential (primary) hypertension; J44.9 Chronic obstructive pulmonary disease, unspecified; I48.91 Unspecified atrial fibrillation; Z95.5 Presence of coronary angioplasty implant and graft; Z95.0 Presence of cardiac pacemaker

== ENCOUNTER → 2017-09-05 | Day surgery (SDC) | payer MEDICARE ==
[~2017-09-05] VITALS: Ht 185.4 cm; Wt 90.7 kg
[~2017-09-05] MED LIST changes: +MIRALAX17 GM PO; +OCUVITE EYE +1 EACH PO; +PROVENTIL HFA6.7 GM PO; +SENNA CONCENTR8.6 M1 PO; +SYMB160 INH; -VITAMIN D31000 I1 PO; +VITAMIN D3400 UNIT PO
--- NOTE | ~2017-09-05 | PROC NOTE ---
[place], [place] PROCEDURE NOTE [id number] UN[facility] #: [id number] ROOM: DOCTOR: SAUD ECHEVARRIA MD,NAIMA BIRTHDATE: [birth year] DOS: 09/05/2017 PROCEDURE: Bronchoscopy with transbronchial biopsy. PREOPERATIVE DIAGNOSIS: Right upper lobe area of consolidation mass-like lesion status post biopsy with fluoroscopy and the BAL specimen. PROCEDURE DESCRIPTION: Informed consent obtained for the patient. The patient brought to the OR and placed into sedation. Conscious sedation administered by the Anesthesia Department. After achieving proper sedation, airway introduced into the mouth. Bronchoscope advanced to the airway into laryngeal area. Epiglottis and vocal cord were seen. Vocal cords were moving symmetrically with movements. Bronchoscope advanced to vocal and tracheal lumen shows small amount of purulent secretion with mucus, which was suctioned out the dolores level. Dolores noted sharp. Right upper, right lower, left upper, lingula and the left lower lobe opening were all identified. All bronchial openings were noted patent. The BAL specimen was obtained from the sputum subsegment of the right upper lobe as well as 2 transbronchial biopsy of the patient was done with the help of fluoroscopy. The segments from the patient noted extremely difficult to enter. Procedure was well tolerated without any postoperative complications. Postoperative findings were discussed with patient's son in detail in the recovery room as well. NAIMA VILLAVICENCIO MD CM:PROCNOTE:PROCEDURE NOTE [id number] NAIMA ECHEVARRIA MD
[2017-09-05 08:09] VITALS: BP 127/63
[2017-09-05 09:13] VITALS: BP 137/65
[2017-09-05 09:28] VITALS: BP 135/72
[2017-09-05 09:43] VITALS: BP 127/52
[2017-09-05 13:23] LABS: BF LYMPHOCYTES 7 %; BF MACROPHAGES 32 %; BF NEUTROPHILS 60 %
[2017-09-06 16:09] LABS: ACID FAST SMEAR Negative (.); ACID FAST SPEC PROCESSING Concentration (.)
[2017-09-08 04:06] LABS: MITOGEN VALUE 3.16 IU/mL (.); TB Ag MINUS NIL VALUE <0.00 IU/mL (.); TB Ag VALUE 0.02 IU/mL (.); TB GOLD Negative (Negative)
== END | disposition home or self-care (01) ==
LOC: SDC 09-01 14:00
PROVIDERS: Internal Medicine Critical Care Medicine
DX: J84.9 Interstitial pulmonary disease, unspecified (principal); Z88.2 Allergy status to sulfonamides; I10 Essential (primary) hypertension; I48.91 Unspecified atrial fibrillation; Z95.0 Presence of cardiac pacemaker; Z86.73 Personal history of transient ischemic attack (TIA), and cerebral infarction without residual deficits; J44.9 Chronic obstructive pulmonary disease, unspecified; Z98.890 Other specified postprocedural states

== ENCOUNTER 2018-01-24 01:09 | Emergency (ER) | payer MEDICARE ==
[~2018-01-24] VITALS: Ht 185.4 cm; Wt 96.2 kg
[2018-01-24 01:51] LABS: BASO % 0.2 % (0.0-1.0); EOS # 0.2 10*3/uL (0.0-0.4); EOS % 2.7 % (1.0-4.0); HEMOGLOBIN 12.8 g/dl (14.0-18.0); LYMPH # 0.9 10*3/uL (1.3-4.4); LYMPH % 11.3 % (27.0-41.0); MEAN CELL VOLUME 91.5 fl (80.0-94.0); MEAN CORPUSCULAR HGB 29.3 pg (27.0-31.0); MEAN PLATELET VOLUME 10.1 fl (9.6-12.3); MONO # 0.7 10*3/uL (0.1-1.0); MONO % 8.3 % (3.0-9.0); NEUT # 6.2 10*3/uL (2.3-7.9); PLATELET COUNT AUTOMATED 187 10*3/uL (130-400); RED BLOOD COUNT 4.37 10*6/uL (4.50-5.90); RED CELL DISTRI WIDTH 13.9 % (0-14.5); WHITE BLOOD COUNT 8.1 10*3/uL (4.8-10.8)
[2018-01-24 02:02] LABS: ACT PARTIAL THROMBO TIME 25.1 SECONDS (20.8-31.5); INTERNATIONAL NORM RATIO 1.1 (2.0-3.5)
[2018-01-24 02:10] LABS: ALBUMIN 3.1 gm/dl (3.1-4.5); ALKALINE PHOSPHATASE 45 U/L (45-117); BUN 18 mg/dl (7-24); CHLORIDE 108 mmol/L (98-107); CREATININE 1.28 mg/dL (0.70-1.30); POTASSIUM 4.2 mmol/L (3.5-5.1); SGOT/AST 27 IU/L (3-35); SGPT/ALT 25 U/L (12-78); SODIUM 141 mmol/L (136-145); TOTAL PROTEIN 6.4 gm/dL (6.4-8.2)
[2018-01-24 02:11] LABS: TROPONIN I < 0.015 ng/ml (<0.045)
[2018-01-24 02:12] LABS: BILIRUBIN NEGATIVE (NEGATIVE); BLOOD NEGATIVE (NEGATIVE); CLARITY CLEAR (CLEAR); COLOR YELLOW (YELLOW); GLUCOSE NEGATIVE (NEGATIVE); KETONE NEGATIVE (NEGATIVE); LEUKO ESTERASE NEGATIVE (NEGATIVE); NITRITE NEGATIVE (NEGATIVE); PH 5.5 (5.0-9.0)
[2018-01-24] MEDS ORDERED: DOCUSATE SODIU100 M2 PO (02:13)
[2018-01-24] MEDS ORDERED: IRON325 M1 PO (02:15)
[2018-01-24] MEDS ORDERED: PROSCAR5 M1 PO (02:15)
[2018-01-24] MEDS ORDERED: FLOMAX0.4 MG PO (02:17)
[2018-01-24 02:18] LABS: BACTERIA TRACE; RBC 0-2 rbc/hpf (0-2)
[2018-01-24] MEDS ORDERED: ROBAFEN100 MG/51 PO (02:19)
== END 2018-01-24 06:07 | disposition short-term general hospital (02) ==
LOC: ED 01:09
PROVIDERS: Student in an Organized Health Care Education/Training Program
DX: I77.1 Stricture of artery (principal); J45.909 Unspecified asthma, uncomplicated; J44.9 Chronic obstructive pulmonary disease, unspecified; I48.2 Chronic atrial fibrillation; E78.5 Hyperlipidemia, unspecified; Z88.2 Allergy status to sulfonamides; Z79.899 Other long term (current) drug therapy; Z79.82 Long term (current) use of aspirin; Z86.73 Personal history of transient ischemic attack (TIA), and cerebral infarction without residual deficits

== ENCOUNTER 2019-06-26 21:08 | Emergency (ER) | payer MEDICARE ==
[~2019-06-26] VITALS: Ht 185.4 cm; Wt 104.3 kg
[~2019-06-26 21:08] MED LIST changes: +DOCUSATE SODIU100 M2 PO; +IRON325 M1 PO; +MUCINEX ER600 MG PO; +Nystatin Cream15 GM T; +PREDNISONE10 MG PO; +PROSCAR5 M1 PO; +ROBAFEN100 MG/51 PO
== END 2019-06-26 23:00 | disposition home or self-care (01) ==
LOC: ED 21:08
DX: S09.90XA Unspecified injury of head, initial encounter (principal); I25.10 Atherosclerotic heart disease of native coronary artery without angina pectoris; J44.9 Chronic obstructive pulmonary disease, unspecified; E78.5 Hyperlipidemia, unspecified; I48.2 Chronic atrial fibrillation; N18.3 Chronic kidney disease, stage 3 (moderate); Z86.73 Personal history of transient ischemic attack (TIA), and cerebral infarction without residual deficits; Z88.2 Allergy status to sulfonamides; W22.8XXA Striking against or struck by other objects, initial encounter; Y93.89 Activity, other specified; Y92.89 Other specified places as the place of occurrence of the external cause; Y99.8 Other external cause status

== ENCOUNTER → 2019-06-29 | Outpatient (CLI) | payer MEDICARE | END | disposition home or self-care (01) | LOC: CARD 00:35 | DX: R55 Syncope and collapse (principal); W50.0XXA Accidental hit or strike by another person, initial encounter; Y93.89 Activity, other specified; Y92.89 Other specified places as the place of occurrence of the external cause; Y99.8 Other external cause status ==

== ENCOUNTER 2019-07-30 07:29 | Emergency (ER) | payer MEDICARE ==
[2019-07-30 07:47] LABS: BASO % 0.4 % (0.0-1.0); EOS # 0.6 10*3/uL (0.0-0.4); EOS % 6.8 % (1.0-4.0); HEMATOCRIT 41.1 % (42.0-52.0); HEMOGLOBIN 12.7 g/dl (14.0-18.0); LYMPH % 10.8 % (27.0-41.0); MEAN CELL VOLUME 93.4 fl (80.0-94.0); MEAN CORPUSCULAR HGB 28.9 pg (27.0-31.0); MEAN CORPUSCULAR HGB CONC 30.9 g/dl (33.0-37.0); MEAN PLATELET VOLUME 9.8 fl (9.6-12.3); MONO # 0.7 10*3/uL (0.1-1.0); NEUT # 6.9 10*3/uL (2.3-7.9); NEUT % 73.6 % (47.0-73.0); PLATELET COUNT AUTOMATED 216 10*3/uL (130-400); RED CELL DISTRI WIDTH 13.9 % (0-14.5); WHITE BLOOD COUNT 9.3 10*3/uL (4.8-10.8)
[2019-07-30 07:58] LABS: ACT PARTIAL THROMBO TIME 27.9 SECONDS (20.0-32.1)
[2019-07-30 08:04] LABS: ALKALINE PHOSPHATASE 59 U/L (45-117); BUN 21 mg/dl (7-24); CHLORIDE 109 mmol/L (98-107); CREATININE 1.46 mg/dL (0.70-1.30); POTASSIUM 4.6 mmol/L (3.5-5.1); SGOT/AST 19 IU/L (3-35); SGPT/ALT 16 U/L (12-78); SODIUM 144 mmol/L (136-145); TOTAL PROTEIN 6.9 gm/dL (6.4-8.2)
[2019-07-30 08:10] LABS: TROPONIN I < 0.015 ng/ml (<0.045)
== END 2019-07-30 11:52 | disposition home or self-care (01) ==
LOC: ED 07:29
PROVIDERS: Emergency Medicine
DX: R07.89 Other chest pain (principal); J44.9 Chronic obstructive pulmonary disease, unspecified; E78.5 Hyperlipidemia, unspecified; I48.20 Chronic atrial fibrillation, unspecified; I25.10 Atherosclerotic heart disease of native coronary artery without angina pectoris; I12.9 Hypertensive chronic kidney disease with stage 1 through stage 4 chronic kidney disease, or unspecified chronic kidney disease; N18.3 Chronic kidney disease, stage 3 (moderate); Z95.0 Presence of cardiac pacemaker; Z88.2 Allergy status to sulfonamides; Z79.899 Other long term (current) drug therapy; Z79.82 Long term (current) use of aspirin

== ENCOUNTER 2019-08-28 10:55 | Emergency (ER) | payer MEDICARE ==
[~2019-08-28] VITALS: Ht 185.4 cm; Wt 99.8 kg
--- NOTE | ~2019-08-28 | EKG ---
[place], [place] ELECTROCARDIOGRAM REPORT NAME: HANS CARIDAD ALDANA UNIT #: [id number] ROOM: DOCTOR: EPIPHANY DRAFT REPORT BIRTHDATE: [birth year] [facility] Test Date: 2019-08-28 Test Time: 11:19:13 Pat Name: CARIDAD MAXWELL Department: Room: Gender: [employer]: : 1930 Requested By: CRYSTAL SAWYER Order Number: [id number] Reading MD: Jaimie Vanegas MD Measurements Intervals [place] Rate: 81 P: CA: QRS: 58 QRSD: 96 T: 25 QT: 377 QTc: 438 Interpretive Statements Atrial fibrillation Borderline low voltage, extremity leads Compared to ECG 07/30/2019 10:14:33 No significant changes Electronically Signed On 08-29-2019 6:38:55 PST by Jaimie Vanegas MD CM:EKGRPT:ELECTROCARDIOGRAM REPORT [id number] CRYSTAL DIAZ DRAFT REPORT CRYSTAL SAWYER M.D.
[2019-08-28 11:26] LABS: BASO % 0.3 % (0.0-1.0); EOS # 0.8 10*3/uL (0.0-0.4); EOS % 10.5 % (1.0-4.0); HEMATOCRIT 39.8 % (42.0-52.0); HEMOGLOBIN 12.6 g/dl (14.0-18.0); LYMPH # 1.2 10*3/uL (1.3-4.4); LYMPH % 15.6 % (27.0-41.0); MEAN CELL VOLUME 92.1 fl (80.0-94.0); MEAN CORPUSCULAR HGB 29.2 pg (27.0-31.0); MEAN CORPUSCULAR HGB CONC 31.7 g/dl (33.0-37.0); MEAN PLATELET VOLUME 9.9 fl (9.6-12.3); MONO # 0.7 10*3/uL (0.1-1.0); MONO % 8.8 % (3.0-9.0); NEUT # 4.7 10*3/uL (2.3-7.9); NEUT % 64.3 % (47.0-73.0); PLATELET COUNT AUTOMATED 218 10*3/uL (130-400); RED BLOOD COUNT 4.32 10*6/uL (4.50-5.90); RED CELL DISTRI WIDTH 14.4 % (0-14.5); WHITE BLOOD COUNT 7.4 10*3/uL (4.8-10.8)
[2019-08-28 11:41] LABS: ALBUMIN 2.7 gm/dl (3.1-4.5); CREATININE 1.37 mg/dL (0.70-1.30); POTASSIUM 4.4 mmol/L (3.5-5.1); TOTAL PROTEIN 6.6 gm/dL (6.4-8.2)
[2019-08-28 13:16] LABS: BILIRUBIN NEGATIVE (NEGATIVE); BLOOD NEGATIVE (NEGATIVE); CLARITY SL CLOUDY (CLEAR); COLOR YELLOW (YELLOW); GLUCOSE NEGATIVE (NEGATIVE); KETONE NEGATIVE (NEGATIVE); LEUKO ESTERASE NEGATIVE (NEGATIVE); NITRITE NEGATIVE (NEGATIVE); PH 7.5 (5.0-9.0); UROBILINOGEN 0.2 E.U./dl (0.2-1.0)
[2019-08-28 13:48] LABS: BACTERIA 2+; RBC 0-2 rbc/hpf (0-2)
[2019-08-28 13:49] LABS: TRIP PHOS CRYSTALS 1+
== END 2019-08-28 13:45 | disposition home or self-care (01) ==
LOC: ED 10:55
PROVIDERS: Emergency Medicine
DX: R42 Dizziness and giddiness (principal); R05 Cough; R19.7 Diarrhea, unspecified; J44.9 Chronic obstructive pulmonary disease, unspecified; I25.10 Atherosclerotic heart disease of native coronary artery without angina pectoris; I48.20 Chronic atrial fibrillation, unspecified; E78.5 Hyperlipidemia, unspecified; N18.3 Chronic kidney disease, stage 3 (moderate); Z79.899 Other long term (current) drug therapy; Z79.82 Long term (current) use of aspirin; Z88.2 Allergy status to sulfonamides; Z86.73 Personal history of transient ischemic attack (TIA), and cerebral infarction without residual deficits